=== PATIENT | male | born 2005 | race Caucasian/White ===

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

== ENCOUNTER 2024-01-26 04:36 | Emergency (ER) | payer BC ==
[~2024-01-26] VITALS: Ht 180.3 cm; Wt 150.0 kg
[2024-01-26 04:50] VITALS: BP 134/81; PULSE 143; RESP 20; TEMP 100; O2SAT 96
[2024-01-26] MEDS ORDERED: ALBU18HF2 INH (08:36)
[2024-01-26] MEDS ORDERED: TAM75C PO (08:36)
== END 2024-01-26 08:56 | disposition home or self-care (01) ==
LOC: ER 04:37
DX: J11.1 Influenza due to unidentified influenza virus with other respiratory manifestations (principal); J45.998 Other asthma; Z79.2 Long term (current) use of antibiotics; Z79.899 Other long term (current) drug therapy
CPT/HCPCS: 87502; 87503; 99283

== ENCOUNTER 2025-10-07 08:21 | Emergency (ER) | payer BC ==
[~2025-10-07] VITALS: Ht 177.8 cm; Wt 145.1 kg
[~2025-10-07 08:21] MED LIST changes: +ALBU18HF2 INH
[2025-10-07 08:33] VITALS: BP 154/98; PULSE 90; TEMP 98.8; O2SAT 98
[2025-10-07 10:48] VITALS: RESP 16
--- NOTE | 2025-10-07 11:01 | RADIOLOGY REPORT ---
CLINICAL HISTORY: Hypertension, visual changes speech changes times several days. TECHNIQUE: Helical scanning was performed of the head from the skull base to the vertex. Multiplanar reconstructions were performed. This exam was performed according to our departmental dose optimization program. Up-to-date CT equipment and radiation dose reduction techniques are utilized as appropriate. CTDI 65 DLP 1160 COMPARISON: None FINDINGS: There is no evidence for acute intracranial hemorrhage, acute ischemic changes, mass, mass effect, or extra-axial fluid collection. There is no hydrocephalus or midline shift. There is no effacement of the cerebral sulci and basal subarachnoid cisterns. The haas-white matter differentiation is well maintained. There is a 3.6 cm left frontal cyst which appears to communicate with the frontal horn of the left lateral ventricle. The imaged paranasal sinuses are clear. IMPRESSION: No acute intracranial abnormality seen. 3.6 cm left frontal cyst appears to communicate with the frontal horn of the left lateral ventricle. Findings most likely relate to an old infectious and/or inflammatory process. However, nonemergent brain MRI with and without IV contrast recommended to exclude other possibilities
--- NOTE | 2025-10-07 11:10 | ELECTROCARDIOGRAPH REPORT ---
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 LAST Travis Measurements Intervals [place] Rate: 85 P: 39 MT: 162 QRS: 76 QRSD: 104 T: 8 QT: 352 QTc: 419 Interpretive Statements Sinus rhythm Electronically Signed On 10-08-2025 16:43:[address] LAST Travis Please click the below link to view image of tracing.
[2025-10-07 11:48] LABS: LEUKOCYTE ESTERASE ,URINE NEGATIVE (Neg); NITRITES, URINE NEGATIVE (Neg); OCCULT BLOOD,URINE NEGATIVE (Neg)
[2025-10-07 11:55] LABS: UA COLLECTION TYPE CLN CATCH MIDSTREAM
[2025-10-07 11:58] LABS: SQUAMOUS EPITHELIAL CELL,UR FEW /LPF (FEW)
[2025-10-07 12:01] LABS: MEAN PLATELET VOLUME 9.3 FL (7.4-10.4); RED CELL DISTRIBUTION WIDTH 13.5 % (11.5-14.5)
[2025-10-07 12:38] LABS: CREATININE 0.71 MG/DL (0.60-1.10); TOTAL CARBON DIOXIDE 28.4 MMOL/L (24-32); eCRCL 170 ML/MIN; eGFR > 90 ML/MIN
[2025-10-07 12:47] LABS: PRO BRAIN NATRIURETIC PEPTIDE < 30 PG/ML (0-125)
[2025-10-07] MEDS ORDERED: CEPH-585 PO (13:44)
--- NOTE | 2025-10-07 13:44 | Physician Documentation ---
History of Present Illness ~ Chief Complaint: Hypertension Stated Complaint: HIGH BLOOD PRESSURE Time Seen by MD: 10:35 Mode of Arrival: POV HPI Patient is a 20-year-old male that reports to the emergency department for evaluation of hypertension that is chronic for him. Patient reports he has had hypertension since the child although he has never been medicated. Today the patient presents with systolic blood pressures in the 150s. Patient reports that he has headache dizziness visual changes intermittently with his high blood pressure. Patient also reports that he has bilateral lower extremity wounds with 1 becoming progressively worse over the last 2 days and a large area of erythema and mild induration noted underneath. Reports that the wounds are itchy has a rash he has had that for several months. But the large area of erythema just presented 2 days ago. No fever chills nausea vomiting diarrhea noted at this time. Other symptoms reported at this time. Medication Reconciliation Allergies: Coded Allergies: No Known Allergies (Unverified , 10/07/25) Scheduled Ondansetron Hcl (Zofran), 1 TAB PO Q6H Scheduled PRN Albuterol Sulfate (Ventolin Hfa), 2 PUFFS INH Q4HPRN PRN for SOB or wheezing Past Medical History Past Surgical History: heart valve surgery Alcohol Use: None Drug Use: none Lives with: Family Lives In: Home Occupation: child Review of Systems ROS As stated above in the HPI, otherwise all systems are reviewed and negative. Physical Exam Vital Signs: Temperature: 98.8, Source: Temporal, Heart Rate: 90, Respiratory Rate: 16, BP: 154/98, Pulse Oximetry: 98, Weight: 145.100 Oxygen Flow Rate: 0 Physical Exam VITALS: Reviewed and as above. GENERAL: Alert, no apparent distress. HEENT: Normocephalic, atraumatic, PERRL, EOMI, dry mucosa, no erythema RESPIRATORY: Lungs clear, normal breath sounds, no respiratory distress. CHEST: No accessory muscle use, no retractions CV: Regular rate, rhythm, no edema, no murmur, No: JVD GI: Soft, non-tender, bowels sounds present, no rebound, guarding, or rigidity BACK: No CVA tenderness, or swelling MUSCULOSKELETAL No deformities, no edema SKIN: Warm and dry, mild rash and wounds that appear to be secondary from persistent scratching noted on the legs bilaterally, large area of erythema and mild induration noted to the anterior portion of the left lower extremity possibly associated with 1 of the wounds that the patient has been scratching it noted during examination. NEURO: Oriented x4, No motor or sensory deficit PSYCH: Normal mood and affect, no agitation Progress Results/Orders Results/Orders Orders - LISS MANRIQUEZ [employer] Ct Head (10/07/25 10:47) Vl Venous (10/07/25 12:26) Completed Orders - LISS MANRIQUEZ [employer] Ct Head (10/07/25 10:47) Cbc/Diff (10/07/25 10:35) CMP (10/07/25 10:35) Stat Ekg (10/07/25 10:37) Hs Troponin I W Calculations (10/07/25 10:37) PBNP (10/07/25 10:37) Ua W/Microscopic, Cult If Ind (10/07/25 11:37) Vital Signs 10/07/25 10/07/25 08:33 10:48 Temp 98.8 Pulse 90 Resp 16 16 B/P (MAP) 154/98 Pulse Ox 98 O2 Flow Rate 0 Laboratory Tests Test 10/07/25 10:50 10/07/25 11:37 White Blood Count 8.3 Red Blood Count 5.87 Hemoglobin 16.2 Hematocrit 47.4 Mean Corpuscular Volume 80.8 Mean Corpuscular Hemoglobin 27.5 Mean Corpuscular Hemoglobin Concent 34.1 Red Cell Distribution Width 13.5 Platelet Count 210 Mean Platelet Volume 9.3 Neutrophils (%) (Auto) 74.3 Lymphocytes (%) (Auto) 18.3 L Monocytes (%) (Auto) 5.8 Eosinophils (%) (Auto) 1.1 Basophils (%) (Auto) 0.5 Neutrophils # (Auto) 6.2 Lymphocytes # (Auto) 1.5 Monocytes # (Auto) 0.5 Eosinophils # (Auto) 0.1 Basophils # (Auto) 0.0 CBC Comment Sodium Level 144 Potassium Level 4.6 Chloride Level 106 Carbon Dioxide Level 28.4 Anion Gap 10 Blood Urea Nitrogen 17 Creatinine 0.71 Estimated GFR/1.73 m2 > 90 BUN/Creatinine Ratio 23.9 H Glucose Level 95 Calcium Level 9.0 Total Bilirubin 1.6 H Aspartate Amino Transf (AST/SGOT) 18 Alanine Aminotransferase (ALT/SGPT) 46 Alkaline Phosphatase 49 Troponin I High Sensitivity 5 Pro-B-Type Natriuretic Peptide < 30 Total Protein 7.9 Albumin 4.2 Globulin 3.7 Albumin/Globulin Ratio 1.1 Chemistry Comments Urine Specimen Description Cln catch midstream Urine Color Yellow Urine Clarity Clear Urine pH 6.0 Urine Specific [place] 1.025 Urine Protein 30 H Urine Glucose (UA) Negative Urine Ketones Negative Urine Occult Blood Negative Urine Nitrite Negative Urine Bilirubin Negative Urine Urobilinogen 1.0 Urine Leukocyte Esterase Negative Urine RBC 0-2 Urine WBC 0-4 Urine Squamous Epithelial Cells Few Urine Bacteria None seen Urine Culture Indicated Not ind Volume Urine Centrifuged 10 ml Urine Comment Medical Decision Making Additional information obtaine: other Findings Chief Complaint: Chronic hypertension evaluation and bilateral lower extremity wounds History of Present Illness: 20-year-old male with history of chronic hypertension since childhood, never medicated, presenting for evaluation. Reports systolic blood pressures in 150s today. Associated symptoms include intermittent headaches, dizziness, and visual changes with elevated blood pressu re. Additionally presents with bilateral lower extremity wounds, with one wound showing progressive worsening over past 2 days with large area of erythema and mild induration. Wounds described as itchy, with underlying rash present for several months. Denies fever, chills, nausea, vomiting, or diarrhea. Emergency Department Course: Patient evaluated for dual concerns of uncontrolled hypertension and possible lower extremity cellulitis. Vital signs notable for systolic blood pressure in 150s. Physical examination revealed bilateral lower extremity wounds with one demonstrating significant erythema and induration concerning for superimposed bacterial infection. Medical Decision Making: Number of Diagnoses/Management Options: Moderate complexity. Patient presents with two distinct problems requiring evaluation and management: (1) chronic uncontrolled hypertension with end-organ symptoms, and (2) lower extremity cellulitis complicating chronic dermatologic condition. Amount/Complexity of Data: Moderate. Review of vital signs, physical examination findings of lower extremity wounds, assessment of hypertension severity and chronicity. Risk of Complications: Moderate to high. Uncontrolled hypertension in young adult with symptoms of headaches, dizziness, and visual changes raises concern for hypertensive urgency and potential end-organ damage. Lower extremity cellulitis with progressive erythema and induration requires antibiotic therapy to prevent progression to abscess or systemic infection. Assessment and Plan: Uncontrolled Hypertension: 20-year-old with chronic untreated hypertension, now symptomatic with headaches, dizziness, and visual changes. Blood pressure elevation in this age group warrants investigation for secondary causes. Initiated antihypertensive therapy in ED. Patient requires close outpatient follow-up for medication titration and evaluation for secondary hypertension. Lower Extremity Cellulitis: Progressive erythema and induration over past 2 days superimposed on chronic dermatologic condition. Prescribed oral antibiotics for cellulitis. Patient counseled on wound care and signs of worsening infection. Disposition: Discharge home with close follow-up Discharge Instructions Provided: Diagnosis: Uncontrolled hypertension and lower extremity cellulitis explained to patient Medications: New prescriptions for antihypertensive medication and oral antibiotics provided with instructions on dosing and duration Follow-up: Instructed to follow up with primary care physician within 3-5 days for blood pressure monitoring and hypertension management; wound recheck in 48- 72 hours Return Precautions: Patient instructed to return to ED for worsening headache, vision changes, chest pain, shortness of breath, spreading redness or warmth in legs, fever, or any other concerning symptoms Self-care: Wound care instructions provided including keeping area clean and dry; blood pressure monitoring recommendations discussed Overall Medical Decision Making Complexity: Moderate Patient demonstrated understanding of discharge instructions and had opportunity to ask questions. Verbal and written discharge instructions provided. Differential Dx:Considerations: Include CHF, Include HTN, essential, Include HTN, accelerated, Include HTN, malignant, Include HTN, encephalopathy, Include medical noncompliance, Include medication withdrawal, Include pulmonary edema, Include renal failure, Include -induced, Include other Departure Disposition: 01 HOME / SELF CARE / HOMELESS Impression: Primary Impression: Benign hypertension Additional Impressions: Skin abscess Rash Condition: Stable Discharge Instructions: Hypertension, Adult, Rash, Adult, Skin Abscess, [id number] Additional Instructions: Your Diagnosis You came to the emergency department today for two main problems: High blood pressure (hypertension) that has not been treated with medication Infection in your leg wound (cellulitis) - this is when bacteria get into the skin and cause redness, swelling, and warmth What You Need to Do at Home For Your Leg Wound: Keep the wound clean and dry. Change the dressing as instructed by your nurse. Take all of your antibiotics exactly as prescribed, even if the wound starts to look better. Stopping antibiotics early can allow the infection to come back. Watch for signs the infection is getting worse: Redness spreading beyond the marked area (if marked) Increased pain, warmth, or swelling Pus or bad-smelling drainage Red streaks going up your leg Fever (temperature over 100.4F or 38C) Elevate your legs when sitting or lying down to help reduce swelling and promote healing. Do not scratch the wounds, even though they are itchy. This can make the infection worse. For Your Blood Pressure: Take your new blood pressure medication every day as prescribed. Do not skip doses. Monitor your blood pressure at home if possible. Keep a record to bring to your follow-up appointment. Do not stop taking your blood pressure medication suddenly, even if you feel fine. High blood pressure often has no symptoms but can still damage your body. General Care: Do not smoke. Smoking slows wound healing and makes blood pressure harder to control. Eat healthy foods and limit salt intake to help control your blood pressure. Stay active as tolerated, but avoid putting pressure on the wound. Follow-Up Appointments See your primary care doctor within 3-5 days for blood pressure check and medication adjustment. Have your wound rechecked within 48-72 hours to make sure the infection is improving. Your doctor may want to see you sooner if the wound is not getting better. You may need to see a residential treatment specialist if your wound does not start healing within 4 weeks. When to Return to the Emergency Department Come back to the emergency department right away if you have any of these warning signs: Severe headache that does not go away with pain medication Vision changes such as blurred vision, double vision, or loss of vision Chest pain or trouble breathing Fever (temperature over 100.4F or 38C) or chills Redness spreading rapidly on your leg despite taking antibiotics Red streaks going up your leg from the wound Increased pain in your leg that is not controlled with pain medication Numbness or tingling in your legs or feet Any other symptoms that concern you Important Reminders Your blood pressure has been high for many years without treatment. It is very important to take your medication every day and see your doctor regularly to prevent serious problems like stroke, heart attack, or kidney damage. Wound infections can spread quickly and become serious, especially if not treated properly. Taking your full course of antibiotics and keeping your follow-up appointments is essential. If you have trouble affording your medications, talk to your doctor or pharmacist about less expensive options. Questions? If you have any questions about your care or these instructions, call your primary care doctor's office. Referrals: NO PRIMARY CARE PROVIDER (PCP) Prescriptions Cephalexin*Monohydrate* (Keflex*) 500 Mg Capsule 1 CAP PO QID for 7 Days, #28 CAP Prov: LISS MANRIQUEZ 10/07/25 Education Educated: Patient Educated regarding: diagnosis, treatment, need for follow up Signature Scribe Signature: A Attestation: Scribed for Liss Manriquez by LOI Hebert . 10/07/25 13:46 LISS MANRIQUEZ Oct 07, 2025 13:44
--- NOTE | 2025-10-08 16:43 | VASCULAR REPORT ---
LEFT LOWER EXTREMITY VENOUS DUPLEX REASON FOR EXAMINATION: Left lower extremity pain and swelling, especially the calf. COMPARISON: None TECHNIQUE: Using real-time freeze-frame technique with a high-frequency transducer, multiple longitudinal and transverse sections were obtained. Simultaneous color flow and spectral Doppler imaging was performed. FINDINGS: There is good visualization of the deep venous system with no intraluminal filling defects identified. Normal venous compressibility is seen and there is flow augmentation. Color flow Doppler imaging is unremarkable. IMPRESSION: NO EVIDENCE OF DEEP VENOUS THROMBOSIS.
== END 2025-10-07 13:56 | disposition home or self-care (01) ==
LOC: ER 08:22
DX: I10 Essential (primary) hypertension (principal); R21 Rash and other nonspecific skin eruption; L02.91 Cutaneous abscess, unspecified; F17.200 Nicotine dependence, unspecified, uncomplicated; R06.02 Shortness of breath; Z79.899 Other long term (current) drug therapy
CPT/HCPCS: 36415; 70450; 80053; 81001; 83880; 84484; 85025; 93005; 93971; 99284